=== PATIENT | female | born 1980 | race Caucasian/White ===

== ENCOUNTER 2016-09-30 20:40 | Emergency (ER) | payer BC, OTHER ==
[~2016-09-30] VITALS: Ht 160 cm; Wt 68.2 kg
[~2016-09-30 20:40] MED LIST: NORG7TAB PO
[2016-10-01] MEDS ORDERED: IBUPROFEN 600 MG TABLET PO ONE (00:30)
[2016-10-01] MEDS: ACETAMINOPHEN/CODEINE 300-30 MG TABLET PO ONE ×2 (00:38→00:41)
[2016-10-01 01:57] VITALS: BP 133/80
== END 2016-10-01 01:59 | disposition home or self-care (01) ==
LOC: EMS 20:43
DX: J02.9 Acute pharyngitis, unspecified (principal); Z88.8 Allergy status to other drugs, medicaments and biological substances
CPT/HCPCS: 99283